=== PATIENT | female | born 1970 | race Caucasian/White ===

== ENCOUNTER 2023-01-17 06:31 | Inpatient (IN) | payer OTHER ==
[2023-01-17 07:30] LABS: #Monocytes 0.3 thou/uL (0.11-0.59); #Neutrophils 4.6 thou/uL (1.40-6.50); %Basophils 0.1 % (0.0-1.0); %Eosinophils 0.1 % (0.0-10.0); %Lymphocytes 28.8 % (21.0-51.0); %Monocytes 4.5 % (0.0-10.0); %Neutrophils 66.2 % (42.0-75.0); Mean Corpuscular HGB CONC 34.4 g/dL (32.0-36.0); Mean Corpuscular Hemoglobin 32.1 pg (27.0-31.0); Mean Corpuscular Volume 93.3 fl (78.0-98.0); Mean Platelet Volume 9.6 fL (7.4-10.4); Platelet Count 165 10x3/uL (130-400); RBC Distribution Width 13.2 % (11.5-14.5); Red Blood Cell (RBC) Count 3.43 mill/uL (4.20-5.40); White Blood Cell (WBC) Count 6.9 10x3/uL (4.8-10.8)
[2023-01-17] MEDS ORDERED: Ondansetron ODT 4 MG TAB PO PRN (07:35)
[2023-01-17] MEDS ORDERED: Ondansetron PF 4 MG/2 ML Vial IVP PRN (07:35)
[2023-01-17] MEDS ORDERED: hydrALAZINE 20 MG/ML VIAL SLOW IVP PRN (07:35)
[2023-01-17] MEDS ORDERED: traMADol HCl 50 MG TAB PO PRN (07:35)
[2023-01-17 07:39] LABS: BHCG - Serum Negative (NEGATIVE); Pregs Control Background? CLEAR/WHITE (CLR/WHITE); Pregs Control Bar Appear? YES (CONTROL BAR)
[2023-01-17 07:53] LABS: PTT 27.9 sec (22.9-36.1)
[2023-01-17 07:58] LABS: ALT (SGPT) 42 U/L (8-55); AST (SGOT) 56 U/L (5-34); Acetaminophen Less than 10 mcg/mL (10.0-30.0); Albumin 3.2 g/dL (3.5-5.0); Alcohol Less than 10.0 mg/dL (Less than 10); Alkaline Phosphatase 103 U/L (40-110); Anion Gap 12 mmol/L (10-20); BUN (Urea Nitrogen) 16 mg/dL (9.8-20.1); Bilirubin, Total 0.3 mg/dL (0.2-1.2); CK (CPK) 103 U/L (29-168); Calc. Creatinine Clearance 0 mL/min (70-130); Calcium 8.5 mg/dL (7.8-10.44); Carbon Dioxide 24 mmol/L (22-29); Chloride 105 mmol/L (98-107); Estimated GFR 85; Globulin 3.8 g/dL (2.4-3.5); Glucose 110 mg/dL (70-105); Lipase 42 U/L (8-78); Potassium 4.7 mmol/L (3.5-5.1); Salicylate Less than 8.0 mg/dL (15.0-30.0); Sodium 136 mmol/L (136-145)
[2023-01-17] MEDS ORDERED: Cyclobenzaprine 10 MG TAB PO PRN (08:48)
[2023-01-17] MEDS ORDERED: Acetaminophen 325 MG TAB PO SCH (09:00)
[2023-01-17] MEDS: Acetaminophen 500 MG TAB PO SCH ×3 (11:47→23:47)
[2023-01-17] MEDS: Lactated Ringer's 1,000 ML IV SCH ×3 (11:47→21:04)
[2023-01-17] MEDS ORDERED: Ketorolac Tromethamine 30 MG/ML VIAL IVP SCH (12:00)
[2023-01-17] MEDS ORDERED: TETANUS, DIPHTHERIA TOX,ADULT (TDVAX) 0.5 ML VIAL IM ONE (12:00)
[2023-01-17 12:26] LABS: Hemoglobin 11.6 g/dL (12.0-16.0)
[2023-01-17] MEDS: Oxazepam 10 MG CAP PO SCH ×2 (15:41→20:59)
[2023-01-17] MEDS: Morphine 4 MG/ML VIAL SLOW IVP PRN (16:11)
[2023-01-17 18:30] LABS: Hematocrit 27.9 % (36.0-47.0); Hemoglobin 9.6 g/dL (12.0-16.0)
[2023-01-17] MEDS: QUEtiapine 25 MG TAB PO SCH (20:58)
[2023-01-18 00:30] LABS: Hematocrit 33.4 % (36.0-47.0); Hemoglobin 11.4 g/dL (12.0-16.0)
[2023-01-18] MEDS: Lactated Ringer's 1,000 ML IV SCH ×2 (04:43→11:41)
[2023-01-18 05:22] LABS: #Eosinphils 0.1 thou/uL (0.0-0.7); #Monocytes 0.3 thou/uL (0.11-0.59); #Neutrophils 1.8 thou/uL (1.40-6.50); %Basophils 0.3 % (0.0-1.0); %Eosinophils 2.3 % (0.0-10.0); %Lymphocytes 46.4 % (21.0-51.0); %Neutrophils 43.7 % (42.0-75.0); Hematocrit 25.3 % (36.0-47.0); Hemoglobin 8.6 g/dL (12.0-16.0); Mean Corpuscular Hemoglobin 31.6 pg (27.0-31.0); Mean Platelet Volume 9.5 fL (7.4-10.4); Platelet Count 106 10x3/uL (130-400); RBC Distribution Width 13.1 % (11.5-14.5); Red Blood Cell (RBC) Count 2.72 mill/uL (4.20-5.40)
[2023-01-18 05:50] LABS: ALT (SGPT) 35 U/L (8-55); AST (SGOT) 45 U/L (5-34); Albumin 2.7 g/dL (3.5-5.0); Alkaline Phosphatase 85 U/L (40-110); Anion Gap 9 mmol/L (10-20); BUN (Urea Nitrogen) 10 mg/dL (9.8-20.1); Bilirubin, Total 0.3 mg/dL (0.2-1.2); Calc. Creatinine Clearance 99 mL/min (70-130); Calcium 8.1 mg/dL (7.8-10.44); Carbon Dioxide 23 mmol/L (22-29); Chloride 108 mmol/L (98-107); Estimated GFR 108; Globulin 3.2 g/dL (2.4-3.5); Glucose 91 mg/dL (70-105); Protein, Total 5.9 g/dL (6.0-8.3); Sodium 136 mmol/L (136-145)
[2023-01-18] MEDS: Acetaminophen 500 MG TAB PO SCH ×4 (06:09→23:41)
[2023-01-18] MEDS: Oxazepam 10 MG CAP PO SCH ×3 (06:09→20:08)
[2023-01-18 11:15] VITALS: BMI 19.6
[2023-01-18] MEDS: Morphine 4 MG/ML VIAL SLOW IVP PRN (14:36)
[2023-01-18] MEDS: Morphine 2 MG/ML VIAL SLOW IVP PRN ×4 (14:53→23:40)
[2023-01-18] MEDS: QUEtiapine 25 MG TAB PO SCH (20:07)
[2023-01-19] MEDS: Lactated Ringer's 1,000 ML IV SCH (02:00)
[2023-01-19] MEDS: Morphine 2 MG/ML VIAL SLOW IVP PRN ×2 (03:49→06:52)
[2023-01-19] MEDS: Acetaminophen 500 MG TAB PO SCH (05:28)
[2023-01-19] MEDS: Oxazepam 10 MG CAP PO SCH (05:29)
[2023-01-19 05:50] LABS: #Eosinphils 0.1 thou/uL (0.0-0.7); #Monocytes 0.2 thou/uL (0.11-0.59); #Neutrophils 2.8 thou/uL (1.40-6.50); %Basophils 0.2 % (0.0-1.0); %Eosinophils 1.3 % (0.0-10.0); %Lymphocytes 32.2 % (21.0-51.0); %Monocytes 4.8 % (0.0-10.0); %Neutrophils 61.3 % (42.0-75.0); Hematocrit 27.6 % (36.0-47.0); Hemoglobin 9.4 g/dL (12.0-16.0); Mean Corpuscular HGB CONC 34.1 g/dL (32.0-36.0); Mean Corpuscular Hemoglobin 32.1 pg (27.0-31.0); Mean Corpuscular Volume 94.2 fl (78.0-98.0); Mean Platelet Volume 9.5 fL (7.4-10.4); Platelet Count 108 10x3/uL (130-400); Red Blood Cell (RBC) Count 2.93 mill/uL (4.20-5.40); White Blood Cell (WBC) Count 4.6 10x3/uL (4.8-10.8)
[2023-01-19 08:53] VITALS: BP 160/79; TEMP 97.9
== END 2023-01-19 15:30 | disposition home or self-care (01) | DRG 815 ==
LOC: ERS 06:31 → IMCU/EMU 07:42 → SJJU 01-18 11:04
PROVIDERS: ADMIT Specialist; ATTEND Specialist
DX: S36.031A Moderate laceration of spleen, initial encounter (principal); D62 Acute posthemorrhagic anemia; Y04.8XXA Assault by other bodily force, initial encounter; Z21 Asymptomatic human immunodeficiency virus [HIV] infection status; F31.9 Bipolar disorder, unspecified; F15.10 Other stimulant abuse, uncomplicated; F17.210 Nicotine dependence, cigarettes, uncomplicated; F10.10 Alcohol abuse, uncomplicated; B19.20 Unspecified viral hepatitis C without hepatic coma; Z88.8 Allergy status to other drugs, medicaments and biological substances; F41.9 Anxiety disorder, unspecified; F43.10 Post-traumatic stress disorder, unspecified
CPT/HCPCS: 36415; 36416; 80053; 80307; 82550; 83605; 83690; 84703; 85025; 85610; 85730; 86850; 86900; 86901; 90714; 93005; 94760; J2270; J2272; J7120